=== PATIENT | female | born 1970 | race African-American/Black ===

== ENCOUNTER 2019-04-06 18:22 | Emergency (ER) | payer OTHER ==
[~2019-04-06] VITALS: Ht 167.6 cm; Wt 113.4 kg
--- OUTSIDE RECORDS SUMMARY | 2019-04-06 18:24 | XMS REPORT ---
[facility] Address Unknown Phone Unavailable Care Team Providers Care Sock Knitter Name Role Phone DR KI MONZON Unavailable Unavailable Problems This patient has no known problems. Allergies, Adverse Reactions, Alerts This patient has no known allergies or adverse reactions. Medications This patient has no known medications. Encounters Start Date/Time End Date/Time Encounter Type Admission Type Attending Clinicians Care Facility Care Department Encounter ID 2018-07-12 10:04:00 2018-07-12 23:59:00 Outpatient C KI MONZ[facility] [place] [facility] [id number] Results Test Description Test Time Test Comments Text Results Atomic Results Result Comments MRI LOW EXT ANY JOIN W/O CONT 2018-07-12 11:03:05 EXAM: MRI right knee without contrastLocation: R16 INDICATION: Sharp pain in right knee that occurs constantly. Sudden onset withinjury 06/05/2018, caused by setting change in direction, felt a pop and sharppain. Knee swelling.COMPARISON: NoneTECHNIQUE: Coronal PD fat sat and T1, sagittal PD and PD fat sat, axial PD fatsat, and T2 intercondylar notch sequences of the right knee were obtainedwithout IV contrast.DISCUSSION:Medial compartment: A high-grade radial tear of the posterior meniscotibialattachment of the medial meniscus as seen on coronal image 19, axial image 19,and sagittal image 16 of the PD fat sat series. This results in peripheraldisplacement of medial meniscal tissue on coronal image 16. The MCL is intact.No focal chondral abnormality is identified.Lateral compartment: The lateral meniscus and lateral collateral ligamentouscomplex are intact. There is mild lateral tibial plateau chondralheterogeneity, without chondral abnormality.Intercondylar notch: The ACL and PCL are intact, without evidence for tear.Patellofemoral compartment: The extensor mechanism is intact. Hoffa's fat padis unremarkable. No focal chondral defect or chondral degeneration is seen.Osseous structures: No fracture or bony mass lesion.Other findings: A small joint effusion and mild acute on chronic synovitis arenoted. A 4.9 cm thin Higgins's cyst is identified; there is a 0.7 cm internalintermediate signal loose body on sagittal image 23 and axial image 14.IMPRESSION:1. High- grade radial tear of the posterior meniscotibial attachment of themedial meniscus.2. Joint effusion and synovitis. There is a Higgins's cyst with a small internalloose body. MRI LOW EXT ANY JOIN W/O CONT 2017-08-10 12:14:12 Exam: MRI of the left knee without contrastHistory: Pain with internal derangement after injury on 08/05/17.Location: [id number]: High-resolution multiplanar multiecho imaging of the left knee wasperformed without contrast.Findings:There is abnormal signal in the posterior horn medial meniscus peripherallyextending to the tibial articular surface consistent with small grade 3meniscal tear. There is mild fraying of the posterior horn of the lateralmeniscus centrally near the meniscal root without MRI criteria for grade 3tear.Normal appearing anterior and posterior cruciate ligaments.Normal appearing medial and lateral collateral ligaments.There is focal chondral fissure involving the apex of the patella which appearsfull- thickness and extending to the cortex of the patella.Normal appearing intra-a rticular popliteus tendon and iliotibial band.Moderate effusion noted. Extensor mechanism is intact.No Higgins's cyst noted.Impression:1. Tear of the posterior horn of the medial meniscus peripherally. Mild frayingof the posterior horn of the lateral meniscus centrally near the meniscal rootnoted without MRI criteria for grade 3 tear.2. Focal full-thickness chondral fissure of the apex of the patella withmoderate joint effusion.
[2019-04-06] MEDS ORDERED: IBUPROFEN 200 MG TAB ONE (20:41)
[2019-04-06] MEDS ORDERED: IBUPROFEN 400 MG TAB PO ONE (20:45)
--- NOTE | 2019-04-06 21:16 | Diagnostic Imaging Report ---
EXAMINATION: Transvaginal ultrasound. CLINICAL INDICATION: Vaginal bleeding COMPARISON: None DISCUSSION: Transverse and sagittal transvaginal images were obtained of the pelvis with supplemental transabdominal images. The uterus is anteverted and normal in size measuring 7 x 4.2 x 6 cm. The endometrial stripe is homogeneous, normal in thickness and measures 0.7 centimeters. Intramural fibroid measuring 2.4 cm. The ovaries are normal in size and echogenicity. The right ovary measures 3.7 x 2.8 x 2.7 centimeters. The left ovary measures 4 x 2.5 x 3 centimeters. No free fluid or pelvic masses are seen. IMPRESSION: 2.4 cm uterine fibroid, otherwise unremarkable. Signed by: Dr. Nic Mccabe M.D. on 04/06/2019 9:12 PM
[2019-04-06 21:41] VITALS: BP 147/82
[2019-04-07] MEDS ORDERED: NAPROXEN 250 MG TAB PO SCH (09:00)
== END 2019-04-06 21:49 | disposition home or self-care (01) ==
LOC: FSED 18:22
DX: N92.4 Excessive bleeding in the premenopausal period (principal); D25.1 Intramural leiomyoma of uterus; I10 Essential (primary) hypertension; F32.9 Major depressive disorder, single episode, unspecified; Z86.2 Personal history of diseases of the blood and blood-forming organs and certain disorders involving the immune mechanism
CPT/HCPCS: 76856; 80053; 81003; 81025; 85025; 99284

== ENCOUNTER 2019-06-05 14:59 | Emergency (ER) | payer OTHER ==
[~2019-06-05] VITALS: Ht 167.6 cm; Wt 106.6 kg
[2019-06-05 16:52] VITALS: BP 127/72
== END 2019-06-05 16:56 | disposition home or self-care (01) ==
LOC: FSED 14:59
DX: N92.4 Excessive bleeding in the premenopausal period (principal)
CPT/HCPCS: 80048; 81025; 85025; 85610; 99284

== ENCOUNTER 2022-10-26 18:37 | Emergency (ER) | payer OTHER ==
[~2022-10-26] VITALS: Ht 167.6 cm; Wt 106.6 kg
[2022-10-26] MEDS ORDERED: ONDANSETRON HCL INJ 2MG/ML 2ML 2 MG/ML VIAL IV ONE (18:46)
[2022-10-26] MEDS ORDERED: Morphine 4mg INJECTION 4 MG/ML INJ IV ONE (19:00)
[2022-10-26] MEDS ORDERED: SODIUM CHLORIDE 0.9% 1000ML 1,000 ML IV ONE (19:00)
[2022-10-26 19:05] LABS: BASOPHILS % 0.4 % (0.0-1.0); EOSINOPHILS # (AUTO) 0.2 (0.0-0.4); EOSINOPHILS % 2.9 % (0.0-6.0); HEMATOCRIT 42.5 % (34.2-44.1); HEMOGLOBIN 12.5 g/dL (12.0-16.0); LYMPHOCYTES # (AUTO) 2.9 (1.0-3.2); LYMPHOCYTES % 37.6 % (18.0-39.1); MEAN CORPUSCULAR HEMOGLOBIN 23.4 pg (28-32); MEAN CORPUSCULAR HGB CONC 29.4 g/dL (31-35); MEAN CORPUSCULAR VOLUME 79.6 fL (81-99); MONOCYTES # (AUTO) 0.6 (0.2-0.8); MONOCYTES % 7.9 % (4.4-11.3); NEUTROPHILS # (AUTO) 3.9 (2.1-6.9); NEUTROPHILS % 50.9 % (38.7-80.0); PLATELET COUNT 312 x10e3/uL (140-360); RED BLOOD COUNT 5.34 x10e6/uL (3.6-5.1); RED CELL DISTRIBUTION WIDTH 14.3 % (11.7-14.4)
[2022-10-26 19:18] LABS: CLARITY,URINE HAZY (CLEAR); COLOR,URINE YELLOW (YELLOW); KETONES,URINE 1+ (NEGATIVE); LEUKOCYTE ESTERASE ,URINE NEGATIVE (NEGATIVE); NITRITE,URINE NEGATIVE (NEGATIVE); PROTEIN,URINE DIPSTICK NEGATIVE (NEGATIVE); URINE UROBILINOGEN 0.2 mg/dL (0.2 - 1)
[2022-10-26 19:24] LABS: ALANINE AMINOTRANSFERASE 26 IU/L (0-55); ALBUMIN 4.2 g/dL (3.5-5.0); ALBUMIN/GLOBULIN RATIO 1.1 (0.8-2.0); ALKALINE PHOSPHATASE 48 IU/L (40-150); ANION GAP 17.6 mmol/L (8-16); BLOOD UREA NITROGEN 9 mg/dL (7-26); BUN/CREATININE RATIO 10 (6-25); CALCIUM 9.2 mg/dL (8.4-10.2); CARBON DIOXIDE 25 mmol/L (22-29); CHLORIDE 100 mmol/L (98-107); CREATINE KINASE 306 IU/L (29-168); GLUCOSE 118 mg/dL (74-118); POTASSIUM 3.6 mmol/L (3.5-5.1); SODIUM 139 mmol/L (136-145)
[2022-10-26 19:28] LABS: BACTERIA,URINE MANY /HPF; EPITHELIAL CELLS,URINE MODERATE /LPF
[2022-10-26] MEDS ORDERED: IOPAMIDOL 370 MG/ML 100 ML INFUS..BTL INJ ONE (20:04)
[2022-10-26] MEDS ORDERED: CEFDINIR300 MG PO (22:55)
[2022-10-26] MEDS ORDERED: KETOROLAC TROME10 MG PO (22:55)
[2022-10-26] MEDS ORDERED: ONDANSETRON ODT4 MG PO (22:55)
[2022-10-26 23:41] VITALS: BP 145/71
== END 2022-10-26 23:29 | disposition home or self-care (01) ==
LOC: ER 18:40
DX: R10.11 Right upper quadrant pain (principal); R10.31 Right lower quadrant pain; N39.0 Urinary tract infection, site not specified; N83.201 Unspecified ovarian cyst, right side; R11.0 Nausea; I10 Essential (primary) hypertension; D64.9 Anemia, unspecified; K21.9 Gastro-esophageal reflux disease without esophagitis; R94.31 Abnormal electrocardiogram [ECG] [EKG]
CPT/HCPCS: 36415; 74177; 76856; 80053; 81001; 82550; 82553; 83690; 84484; 85025; 93005; 99284; J2270; J2405; J7030; Q9967